=== PATIENT | female | born 1935 | race Caucasian/White ===

== ENCOUNTER 2017-02-04 14:57 | Day surgery (SDC) | payer MEDICARE, OTHER ==
[~2017-02-04] VITALS: Ht 175.3 cm; Wt 49.9 kg
[~2017-02-04 14:57] MED LIST: AMLO5TAB PO; CALCIUM 600/VIT1 CAP PO; CALCIUM WITH V1 EAC1 PO; FUROSEMIDE40 MG PO; GABAPENTIN 600600 MG PO; GABAPENTIN300 MG PO; LISINOPRIL10 MG PO; NAPROXEN500 MG PO; PERIACTIN 4MG. T4 MG PO; SIMVASTATIN20 MG PO; TYLENOL WITH CO1 TA1 PO
[2017-02-04 15:06] VITALS: BP 173/73
[2017-02-04 15:22] VITALS: BP 165/86; BP 173/73
--- NOTE | 2017-02-04 15:31 | Procedure Note ---
Procedure detail Date of procedure: 02/04/17 Anesthesiologist: Vinay mccarthy CRNA Complications: None Pre-procedure diagnosis: LEFT sacroiliitis. Post-procedure diagnosis: Same. Indications for procedure: Patient's a very pleasant 81-year-old white female that we're treating her pain clinic for chronic low back pain secondary to degenerative disease of her spine multiple levels as well as lumbar facet arthropathy. Lumbar spondylosis. We treated the patient with Tylenol No. 3 one by mouth 4 times a day. Patient reports pain medicine decrease her pain by 50 percent. We also treated the patient with injected therapy. She has extreme point tenderness over the LEFT SI joint today. She complains of LEFT hip pain that radiates down the foot at times. She good success with bilateral SI joint injections July 2016. I discussed at length with her regarding LEFT SI joint injection. She wishes to proceed. She continues to be monitored closely by her PCP for significant weight loss over the last 6-12 months. Procedure detail: Procedure: Left sacroiliac injection under fluoroscopy Informed consent was obtained and the risk and benefits of the procedure were explained to the patient.~ The patient was taken to the procedure room and noninvasive monitors were placed including noninvasive blood pressure cuff and pulse oximeter.~ The patient was placed prone on the procedure table.~ The~ left hip was cleansed using Betadine as a cleansing solution.~ C-arm fluorosocpy was used to view the left SI joint.~ The skin and subcutaneous tissues were anesthetized using Lidocaine 1.5% and a 25-gauge needle.~ After this, a 22-gauge spinal needle was inserted under fluoroscopic guidance into the inferior aspect of the left SI joint.~ Omnipaque dye was injected and a good spread was seen throughout the joint.~ After this, approximately 5 mL of bupivacaine 0.25% and Depo-Medrol 40 mg was incrementally injected into the sacroiliac joint.~ The patient tolerated the procedure well with no complications.~ The patient was observed in the Pain Clinic for a period of 30-45 minutes, then discharged home neurologically intact.~ Plan and disposition: Patient was reevaluated 10 minutes postprocedure. Patient reports 75 percent improvement terms her LEFT hip pain. at 0638
[2017-02-04 15:55] VITALS: BP 165/86
[2017-02-21] MEDS ORDERED: HYDROCODONE-APA1 TA1 PO (13:19)
== END 2017-02-04 15:55 | disposition home or self-care (01) ==
LOC: PM 14:57
PROC: 3E0U33Z Introduction of Anti-inflammatory into Joints, Percutaneous Approach (ICD-10-PCS; principal; 2017-02-04)
PROC: 3E0U3BZ Introduction of Anesthetic Agent into Joints, Percutaneous Approach (ICD-10-PCS; 2017-02-04)
DX: M46.1 Sacroiliitis, not elsewhere classified (principal)
CPT/HCPCS: G0260; J1040

== ENCOUNTER 2017-05-30 08:37 | Day surgery (SDC) | payer MEDICARE, OTHER ==
[~2017-05-30] VITALS: Ht 175.3 cm; Wt 46.3 kg
[~2017-05-30 08:37] MED LIST changes: +HYDROCODONE-APA1 TA1 PO
--- NOTE | 2017-05-30 14:03 | Procedure Note ---
Procedure detail Date of procedure: 05/30/17 Anesthesiologist: Shadi Gamboa M.D. 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 Post-procedure diagnosis: Same Indications for procedure: This patient is a pleasant 81-year-old white female who we are treating for low back pain with lumbar radiculopathy symptoms and post laminectomy syndrome. She has severe LEFT leg radicular symptoms all the way to the foot. MRI does show significant spinal stenosis, neuroforaminal stenosis and degenerative changes with disc bulge worse L3-L4. She has failed all conservative therapy including injections, oral narcotics and surgery. We have talked about neuro stimulation and patient presents for her spinal cord stimulator trial today. I answered all questions and explaining the risks and benefits. Procedure detail: Informed consent was obtained and the risk and benefits of the procedure was explained to the patient. The patient was taken to the Operating Room. She was placed prone on the procedure table. She was prepped and draped in sterile fashion. C-arm fluoroscopy was used to view the lumbar spine. The skin and septated tissues were anesthetized using lidocaine. A 14-gauge epidural needle was inserted and advanced into the L3 L4 interspace. We advanced into the L3-L4 epidural space using [id number] to air and fluoroscopic guidance. After this stimulating lead was advanced very easily to the T8 vertebral body. The top of the lead was at the top of the T8 vertebral body. We placed a second lead entering the L2-L3 interspace. We again entered the L2-L3 epidural space with [id number]-jq-sqwdavoxip to air and fluoroscopic guidance. After entering the epidural space a stimulating lead was advanced easily to the T9 vertebral body. The top lead was at the top of the T9 vertebral body. The leads were viewed in AP and lateral view to be posterior and improper position. The leads were secured in place and the patient was taken to recovery for programming by the [employer] sales representative. Patient tolerated the procedure well with no complications. Plan and disposition: We will discharge this patient home. She was given programming by the [employer] sales representative she was also given educational instructions. We will follow up with her in 1 week. We will assess efficacy of the trial. Success is greater than 50 percent relief in pain symptoms and toleration of stimulation. at 1403
--- NOTE | 2017-05-30 14:03 | Procedure Note ---
Procedure detail Date of procedure: 05/30/17 Anesthesiologist: Shadi Gamboa M.D. 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 Post-procedure diagnosis: Same Indications for procedure: This patient is a pleasant 81-year-old white female who we are treating for low back pain with lumbar radiculopathy symptoms and post laminectomy syndrome. She has severe LEFT leg radicular symptoms all the way to the foot. MRI does show significant spinal stenosis, neuroforaminal stenosis and degenerative changes with disc bulge worse L3-L4. She has failed all conservative therapy including injections, oral narcotics and surgery. We have talked about neuro stimulation and patient presents for her spinal cord stimulator trial today. I answered all questions and explaining the risks and benefits. Procedure detail: Informed consent was obtained and the risk and benefits of the procedure was explained to the patient. The patient was taken to the Operating Room. She was placed prone on the procedure table. She was prepped and draped in sterile fashion. C-arm fluoroscopy was used to view the lumbar spine. The skin and septated tissues were anesthetized using lidocaine. A 14-gauge epidural needle was inserted and advanced into the L3 L4 interspace. We advanced into the L3-L4 epidural space using [id number]-bk-froratavsu to air and fluoroscopic guidance. After this stimulating lead was advanced very easily to the T8 vertebral body. The top of the lead was at the top of the T8 vertebral body. We placed a second lead entering the L2-L3 interspace. We again entered the L2-L3 epidural space with [id number] to air and fluoroscopic guidance. After entering the epidural space a stimulating lead was advanced easily to the T9 vertebral body. The top lead was at the top of the T9 vertebral body. The leads were viewed in AP and lateral view to be posterior and improper position. The leads were secured in place and the patient was taken to recovery for programming by the [employer] representative. Patient tolerated the procedure well with no complications. Plan and disposition: We will discharge this patient home. She was given programming by the [employer] representative she was also given educational instructions. We will follow up with her in 1 week. We will assess efficacy of the trial. Success is greater than 50 percent relief in pain symptoms and toleration of stimulation. at 1400
[2017-05-30 15:44] VITALS: BP 157/91
--- NOTE | 2017-05-30 15:45 | Anesthesia Record ---
Anesthesia Record Part II Discharge time: 1158 Destination: Same day surgery PACU nurse assessment review? Yes Patient is: Stable Anesthesia complications? No at 0629
--- NOTE | 2017-05-30 15:45 | Anesthesia Record ---
Anesthesia Record Part I Total IV fluids: 1158 EBL (ml): 0 Urine Output: 0 B/P: 157/91 % SaO2: 96 Pulse: 70 Resps: 16 Temp: 98.3 Patient is: Awake, Stable Stable to PACU at: 1158 (sds) at 1544
== END 2017-05-30 13:06 | disposition home or self-care (01) ==
LOC: SDC 08:37 → PM 10:30 → SDC 10:30
PROVIDERS: Anesthesiology
PROC: 00HU3MZ Insertion of Neurostimulator Lead into Spinal Canal, Percutaneous Approach (ICD-10-PCS; principal; 2017-05-30 10:30)
DX: M51.16 Intervertebral disc disorders with radiculopathy, lumbar region (principal); M96.1 Postlaminectomy syndrome, not elsewhere classified
CPT/HCPCS: C1897; J2704